=== PATIENT | male | born 1995 | race Caucasian/White ===

== ENCOUNTER 2017-04-11 02:28 | Emergency (ER) | payer SELFPAY ==
[2017-04-11] MEDS ORDERED: Lidocaine 1% 20 ML MDV INJECT ONE (03:01)
[2017-04-11] MEDS ORDERED: Diphtheria,Pertussis(Acell),Tetanus Vaccine 0.5 ML Syringe IM ONE (03:01)
[2017-04-11] MEDS ORDERED: Bacitracin Oint 1 GM U/D Packet TOP ONE (03:01)
--- NOTE | 2017-04-11 03:05 | EDM.PDOC ---
ED HPI GENERAL MEDICAL PROBLEM - General Chief Complaint: Laceration Stated Complaint: CUT ON RIGHT HAND FINGER Time Seen by Provider: 04/11/17 02:35 - History of Present Illness INITIAL COMMENTS - FREE TEXT/NARRATIVE: HISTORY AND PHYSICAL: History of present illness: The patient is a healthy 21-year-old male who is not up-to-date on his tetanus presents after cutting his right index finger with a multi use tool while he was cutting some boxes open just prior to admission. Earlier today he had no systemic complaints and was in his usual state of good health. Patient presents due to continued bleeding and thinking that the wound may need some stitches. The patient tells me he is ambidextrous and has no neurosensory changes in his finger no other injuries to that hand or digits. Review of systems: As per history of present illness and below otherwise all systems reviewed and negative. Past medical history: As per history of present illness and as reviewed below otherwise noncontributory. Surgical history: As per history of present illness and as reviewed below otherwise noncontributory. Social history: No reported history of drug or alcohol abuse. Family history: As per history of present illness and as reviewed below otherwise noncontributory. Physical exam: Gen.: Well-developed well-nourished man who is nontoxic and vital signs of been reviewed by me HEENT: Atraumatic, normocephalic, negative for conjunctival pallor or scleral icterus, mucous membranes moist, throat clear, neck supple, nontender, trachea midline. Lungs: Clear to auscultation, breath sounds equal bilaterally, chest nontender. Heart: S1S2, regular rate and rhythm no overt murmurs Abdomen: Soft, nondistended, nontender. NABS. Pelvis: Deferred Genitourinary: Deferred. Rectal: Deferred. Extremities: Atraumatic with full range of motion of all extremities with the exception of the right index finger but there is 1.25 cm laceration on the radial aspect of the middle phalanx with skin edges that somewhat gaping there is no active bleeding, there is no soft tissue swelling and minimal tenderness with palpation and no bony tenderness. The legs are, negative for cords or calf pain. Neurovascular unremarkable. Neuro: Awake, alert, oriented. Cranial nerves II through XII unremarkable. Cerebellum unremarkable. Motor and sensory unremarkable throughout. Exam nonfocal. Diagnostics: [] Therapeutics: Tdap, wound care, cleansing bacitracin and tube gauze Procedure note: After the procedure was explained to the patient the area was cleansed by nursing and a digital block was placed using 1% lidocaine without epinephrine. The wound was prepped and draped in sterile fashion and explored to reveal no foreign bodies. The skin edges were reapproximated using a total number of #2 sutures of 4-0 nylon. There were no complications the patient tolerated procedure well and nursing applied a dose of bacitracin and tube gauze. Impression: Right index finger laceration Definitive disposition and diagnosis as appropriate pending reevaluation and review of above. denies pain Pain Score (Numeric/FACES): 0 - Related Data Allergies Allergy/AdvReac Type Severity Reaction Status Date / Time No Known Allergies Allergy Verified 04/11/17 02:39 Home Meds: Home Meds . [No Known Home Meds] 04/11/17 [History] Past Medical History HEENT History: Reports: None Cardiovascular History: Reports: None Respiratory History: Reports: None Gastrointestinal History: Reports: None Genitourinary History: Reports: None Musculoskeletal History: Reports: None Neurological History: Reports: None Psychiatric History: Reports: None Endocrine/Metabolic History: Reports: None Hematologic History: Reports: None Immunologic History: Reports: None Dermatologic History: Reports: None - Infectious Disease History Infectious Disease History: Reports: None - Past Surgical History Musculoskeletal Surgical History: Reports: Other (See Below) 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 ED EXAM, SKIN/RASH Exam: See Below (See dictation) Course - Vital Signs Last Recorded V/S: Last Vital Signs Temp 36.5 C 04/11/17 02:39 Pulse 96 04/11/17 02:39 Resp 18 04/11/17 02:39 BP 149/91 H 04/11/17 02:39 Pulse Ox 98 04/11/17 02:39 - Orders/Labs/Meds Orders: Active Orders 24 hr Category Date Time Status Communication Order [RC] STAT Care 04/11/17 03:01 Active Vaccines to be Administered [RC] PER UNIT ROUTINE Care 04/11/17 03:01 Active Meds: Medications Discontinued Medications Generic Name Dose Route Start Last Admin Trade Name Shannon PRN Reason Stop Dose Admin Bacitracin 1 dose 04/11/17 03:01 04/11/17 03:11 Bacitracin Oint 1 Gm TOP 04/11/17 03:02 1 dose ONETIME ONE Administration Diphtheria/Tetanus/Acell Pertussis 0.5 ml 04/11/17 03:01 04/11/17 03:08 Adacel IM 04/11/17 03:02 0.5 ml .ONCE ONE Administration Lidocaine HCl 20 ml 04/11/17 03:01 04/11/17 03:11 Xylocaine 1% INJECT 04/11/17 03:02 20 ml ONETIME ONE Administration Departure - Departure Time of Disposition: : Disposition: Home, Self-Care 01 Condition: Good Clinical Impression: Laceration of right index finger Qualifiers: Encounter type: initial encounter Damage to nail status: without damage Foreign body presence: without foreign body Qualified Code(s): S61.210A - Laceration without foreign body of right index finger without damage to nail, initial encounter - Discharge Information Referrals: PCP,None [Primary Care Provider] - Forms: ED Department Discharge Additional Instructions: The following information is given to patients seen in the emergency department who are being discharged to home. This information is to outline your options for follow-up care. We provide all patients seen in our emergency department with a follow-up referral. The need for follow-up, as well as the timing and circumstances, are variable depending upon the specifics of your emergency department visit. If you don't have a primary care physician on staff, we will provide you with a referral. We always advise you to contact your personal physician following an emergency department visit to inform them of the circumstance of the visit and for follow-up with them and/or the need for any referrals to a consulting specialist. The emergency department will also refer you to a specialist when appropriate. This referral assures that you have the opportunity for followup care with a specialist. All of these measure are taken in an effort to provide you with optimal care, which includes your followup. Under all circumstances we always encourage you to contact your private physician who remains a resource for coordinating your care. When calling for followup care, please make the office aware that this follow-up is from your recent emergency room visit. If for any reason you are refused follow-up, please contact the [facility] emergency department at and ask to speak to the emergency department charge nurse. [facility] Primary care- Internal Medicine and Family [address] [id number] Please keep the dressing that is placed in the ER on for 24 hours then remove an cleanse the wound with mild soap and water. PET try and apply bacitracin. Try to clean the wound at least twice a day as described with mild soap and water and only apply bacitracin or Neosporin for 2 days and then stop the ointment to allow the wound to dry. If you need to cover the area please use gauze dressing and no Band-Aids. Sutures need to be removed in 7 days either here in the ED or with your provider in the clinic. Return to ED sooner as needed and as discussed - My Orders Last 24 Hours: My Active Orders 04/11/17 03:01 Communication Order [RC] STAT Vaccines to be Administered [RC] PER UNIT ROUTINE - Assessment/Plan Last 24 Hours: My Active Orders 04/11/17 03:01 Communication Order [RC] STAT Vaccines to be Administered [RC] PER UNIT ROUTINE
== END 2017-04-11 03:44 | disposition home or self-care (01) ==
LOC: MW.ED 02:28
DX: S61.210A Laceration without foreign body of right index finger without damage to nail, initial encounter (principal); Z23 Encounter for immunization; W27.8XXA Contact with other nonpowered hand tool, initial encounter
CPT/HCPCS: 12001; 90471; 90715; 99282; 99282-25